=== PATIENT | female | born 1975 | race Two or more races ===

== ENCOUNTER 2016-07-16 10:19 | Emergency (ER) | payer SELFPAY ==
[~2016-07-16] VITALS: Ht 152.4 cm; Wt 68.0 kg
[2016-07-16 10:30] VITALS: BP 111/63
--- NOTE | 2016-07-16 11:24 | PHYS DOC ---
Past Medical History Past Medical History: No Pertinent History Past Surgical History: Alcohol Use: None Drug Use: None Adult General Chief Complaint Chief Complaint: BREAST PAIN/INJURY [facility] HPI Patient is a 41 year old female presents emergency department stating that on Sunday into Sunday she was running a fever. She states that she did not take her temperature at home but felt really warm. She taken ibuprofen and that this had gone away. She states that she did have a headache at the time she had a fever. She denies any cough congestion sore throat, nausea vomiting or any urinary symptoms. Patient states that she did noticed lumps in her right breast. Patient is concerned as she does have family members that have had cancer of the breast. Patient states that she has not had a mammogram as of yet because she told she needed to wait until she was closer to 42. Patient denies any drainage or just discharge coming from her breast area. Patient denies any breast-feeding. Patient does state that she does monthly breast exams. 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 Review of Systems Review of Systems Constitutional: Denies fever or chills [] Eyes: Denies change in visual acuity, redness, or eye pain [] HENT: Denies nasal congestion or sore throat [] Respiratory: Denies cough or shortness of breath [] Cardiovascular: No additional information not addressed in HPI [] GI: Denies abdominal pain, nausea, vomiting, bloody stools or diarrhea [] : Denies dysuria or hematuria [] Musculoskeletal: Denies back pain or joint pain [] Integument: Denies rash or skin lesions [] Neurologic: Denies headache, focal weakness or sensory changes [] Endocrine: Denies polyuria or polydipsia [] Allergies Allergies Allergies Coded Allergies Type Severity Reaction Last Updated Verified No Known Drug Allergies 07/16/16 No Physical Exam Physical Exam Constitutional: Well developed, well nourished, no acute distress, non-toxic appearance. [] HENT: Normocephalic, atraumatic, bilateral external ears normal, oropharynx moist, no oral exudates, nose normal. [] Eyes: PERRLA, EOMI, conjunctiva normal, no discharge. [] Neck: Normal range of motion, no tenderness, supple, no stridor. [] Cardiovascular:Heart rate regular rhythm, no murmur [] Lungs & Thorax: Bilateral breath sounds clear to auscultation [] Skin: Warm, dry, no erythema, no rash. She'll states was noted to have areas from the 9:00 to 12:00 area that appear to have lumps in tenderness noted upon palpation. No redness or drainage noted from the site. The area does appear to be slightly warm. Back: No tenderness Extremities: No tenderness, no cyanosis, no clubbing, ROM intact, no edema. [] Neurologic: Alert and oriented X 3, normal motor function, normal sensory function, no focal deficits noted. [] Psychologic: Affect normal, judgement normal, mood normal. [] Current Patient Data Vital Signs Vital Signs Date Time Temp Pulse Resp B/P (MAP) Pulse Ox O2 Delivery O2 Flow Rate FiO2 07/16/16 10:30 98.5 104 18 98 Room Air 98.5 Lab Values Laboratory Tests Test 07/16/16 12:13 White Blood Count 13.7 x10^3/uL (4.0-11.0) H Red Blood Count 4.79 x10^6/uL (3.50-5.40) Hemoglobin 13.9 g/dL (12.0-15.5) Hematocrit 41.5 % (36.0-47.0) Mean Corpuscular Volume 87 fL (79-100) Mean Corpuscular Hemoglobin 29 pg (25-35) Mean Corpuscular Hemoglobin Concent 34 g/dL (31-37) Red Cell Distribution Width 13.4 % (11.5-14.5) Platelet Count 303 x10^3/uL (140-400) Neutrophils (%) (Auto) 71 % (31-73) Lymphocytes (%) (Auto) 21 % (24-48) L Monocytes (%) (Auto) 6 % (0-9) Eosinophils (%) (Auto) 2 % (0-3) Basophils (%) (Auto) 1 % (0-3) Neutrophils # (Auto) 9.8 x10^3uL (1.8-7.7) H Lymphocytes # (Auto) 2.8 x10^3/uL (1.0-4.8) Monocytes # (Auto) 0.8 x10^3/uL (0.0-1.1) Eosinophils # (Auto) 0.2 x10^3/uL (0.0-0.7) Basophils # (Auto) 0.1 x10^3/uL (0.0-0.2) Sodium Level 139 mmol/L (136-145) Potassium Level 4.1 mmol/L (3.5-5.1) Chloride Level 105 mmol/L (98-107) Carbon Dioxide Level 28 mmol/L (21-32) Anion Gap 6 (6-14) Blood Urea Nitrogen 13 mg/dL (7-20) Creatinine 0.7 mg/dL (0.6-1.0) Estimated GFR (Cockcroft-Gault) 93.2 BUN/Creatinine Ratio 19 (6-20) Glucose Level 105 mg/dL (70-99) H Calcium Level 8.9 mg/dL (8.5-10.1) Total Bilirubin 0.2 mg/dL (0.2-1.0) Aspartate Amino Transferase (AST) 16 U/L (15-37) Alanine Aminotransferase (ALT) 25 U/L (14-59) Alkaline Phosphatase 106 U/L (46-116) Total Protein 8.6 g/dL (6.4-8.2) H Albumin 3.4 g/dL (3.4-5.0) Albumin/Globulin Ratio 0.7 (1.0-1.7) L Laboratory Tests 07/16/16 12:13 Laboratory Tests 07/16/16 12:13 EKG EKG [] Radiology/Procedures Radiology/Procedures [][facility] [address] [place] [address] IMAGING REPORT Signed PATIENT: RITO LYONS ACCOUNT: [id number] : 1975 LOCATION: ER AGE: 41 SEX: F EXAM STATUS: REG ER ORD. PHYSICIAN: NASRA FONTAINE APRN REASON: lumps in right breast, tender PROCEDURE: BREAST RIGHT Indication: Right breast pain outer lower quadrant. Skin redness. Technique: Targeted ultrasound of the area of concern was performed. Findings: There is no solid mass identified. There is no potential distortion. 16 x 6 x 15 mm hypoechoic tubular structure may represent focal dilation of the duct. There is no associated peripheral color flow or internal color flow. There are a few low level echoes internally. Impression: 1. No definite abscess in a patient that clinically has mastitis. 2. Tubular structure is probably a mildly prominent duct. 6 month follow-up would be suggested. 3. If symptoms persist after treatment, diagnostic mammogram can be considered. Alternatively, recommend mammography to begin at age 42. DICTATED and SIGNED BY: ALONDRA DOUGLAS MD DATE: 07/16/16 1206 CC: NASRA FONTAINE APRN; NO PCP ~ Course & Med Decision Making Course & Med Decision Making Pertinent Labs and Imaging studies reviewed. (See chart for details) Patient was negative for any abscesses or any abnormalities they did however see an area that they would recommend follow up within 6 months. They also recommended her to start having milligrams at the age of 42. Patient will be discharged home with recommendations for Tylenol and ibuprofen for pain and discomfort. He received was really elevated. Patient will be discharged home with recommendations for Tylenol and ibuprofen for fever chills and generalized body aches and discomfort. Also recommended plenty of fluids. Patient was provided all information via language interpreter at bedside due to language barrier as she speaks Hungarian only. History of present illness was also obtained through the language interpreter. Patient was provided with signs and symptoms to return back to emergency department. [] Dragon Disclaimer Dragon Disclaimer This electronic medical record was generated, in whole or in part, using a voice recognition dictation system. Departure Departure Impression: Primary Impression: Lump of breast, right Disposition: 01 HOME, SELF-CARE Condition: STABLE Patient Instructions: Breast Self-Exam, [id number], Breast Tenderness Additional Instructions: Activity as tolerated. Tylenol or ibuprofen for fever chills or generalized body aches and discomfort. Drink plenty of fluids. Follow-up to primary care physician in the next 5-7 days. Return back to emergency prior signs symptoms of become worse. Follow-up with your primary care physician to obtain a ultrasound in 6 months. It is advisable for you to also get a mammogram done when he turned 42. NASRA FONTAINE APRN July 16, 2016 11:24
--- NOTE | 2016-07-16 12:07 | RAD ---
Indication: Right breast pain outer lower quadrant. Skin redness. Technique: Targeted ultrasound of the area of concern was performed. Findings: There is no solid mass identified. There is no potential distortion. 16 x 6 x 15 mm hypoechoic tubular structure may represent focal dilation of the duct. There is no associated peripheral color flow or internal color flow. There are a few low level echoes internally. Impression: 1. No definite abscess in a patient that clinically has mastitis. 2. Tubular structure is probably a mildly prominent duct. 6 month follow-up would be suggested. 3. If symptoms persist after treatment, diagnostic mammogram can be considered. Alternatively, recommend mammography to begin at age 42.
[2016-07-16 12:25] LABS: BASO # 0.1 x10^3/uL (0.0-0.2); BASO % 1 % (0-3); EOS % 2 % (0-3); HEMATOCRIT 41.5 % (36.0-47.0); HEMOGLOBIN 13.9 g/dL (12.0-15.5); LYMPH # 2.8 x10^3/uL (1.0-4.8); LYMPH % 21 % (24-48); MEAN CORPUSCULAR HEMOGLOBIN 29 pg (25-35); MEAN CORPUSCULAR HGB CONC 34 g/dL (31-37); MEAN CORPUSCULAR VOLUME 87 fL (79-100); MONO % 6 % (0-9); NEUT % 71 % (31-73); PLATELET COUNT 303 x10^3/uL (140-400); RED BLOOD COUNT 4.79 x10^6/uL (3.50-5.40); RED CELL DISTRIBUTION WIDTH 13.4 % (11.5-14.5); WHITE BLOOD COUNT 13.7 x10^3/uL (4.0-11.0)
[2016-07-16 12:33] LABS: CALCIUM 8.9 mg/dL (8.5-10.1); CREATININE 0.7 mg/dL (0.6-1.0); GFR 93.2; POTASSIUM 4.1 mmol/L (3.5-5.1)
[2016-07-16 12:41] LABS: ALBUMIN 3.4 g/dL (3.4-5.0); ALBUMIN/GLOBULIN RATIO 0.7 (1.0-1.7); TOTAL BILIRUBIN 0.2 mg/dL (0.2-1.0); TOTAL PROTEIN 8.6 g/dL (6.4-8.2)
== END 2016-07-16 12:58 | disposition home or self-care (01) ==
LOC: ER 11:20
DX: N63 Unspecified lump in breast (principal); R51 Headache
CPT/HCPCS: 36415; 76641; 80053; 85027; 99285-25